=== PATIENT | female | born 2005 | race Caucasian/White ===

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

== ENCOUNTER 2023-11-16 18:13 | Emergency (ER) | payer MEDICAID, SELFPAY ==
[2022-04-07 16:27] VITALS: BP 104/49; BMI 22.7
[2023-11-16 18:28] VITALS: BP 98/63; PULSE 99; RESP 17; TEMP 36.6; O2SAT 98; BMI 19.0
--- NOTE | 2023-11-16 18:40 | ED_ITS ---
HPI - URI/Sore Throat General: Chief Complaint: Upper Respiratory Infection Stated Complaint: Sore throat Time Seen by Provider: 11/16/23 18:17 History of Present Illness: 17-year-old female comes in today with s ore throat and a barking cough. Patient reports that her son was sick with the croup. 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 Patient appears nontoxic. No acute distress is noted. Review of Systems General: Reports: 10 or more systems reviewed and unremarkable except in HPI and below ENMT: Reports: throat pain Resp: Reports: non-productive cough PFSH ED PFSH: Medical History (Updated 11/16/23 @ 19:08 by LEAH Prince) Major depressive disorder, single episode, mild Psychiatric care No pertinent family history Surgical History No pertinent past surgical history Family History (Updated 03/31/22 @ 07:28 by Komal Levin RN) Other Cancer Social History (Updated 03/31/22 @ 15:19 by Komal Levin RN) Smoking and tobacco/nicotine status: former use of tobacco/nicotine Second hand smoke exposure: Yes Alcohol intake: never Substance/Drug Use: never Adopted: No (foster care) Caregiver/support person: No Lives independently: Yes Household members: significant other and family Housing: House Marital status: Single Number of children: 1 Highest education level completed: 10th Grade service: No Current occupational status: unemployed Current occupational exposures/hazards: No Pets and animals: Yes Pets & animals: dog(s) Leisure activites: art, music, games and other Leisure activities details: 4 askew Sexually active: Yes Do you think of yourself as: Straight/Heterosexual Current gender identity: Female Yue/Islam: None Special yue needs: No Agree to transfusion: Yes Female Reproductive History: Para: 1 Physical Exam Const: COMMON NORMALS: alert HENMT: COMMON NORMALS: normocephalic HEAD & SCALP: normocephalic THROAT: posterior oropharynx abnormal erythema Neck/C-Spine: COMMON NORMALS: full ROM and no meningeal signs Resp: COMMON NORMALS: normal respiratory effort and clear to auscultation bilaterally AUSCULTATION: clear to auscultation bilaterally Cardio: COMMON NORMALS: regular rate RATE: regular rate GI: COMMON NORMALS: non-tender Back/Pelvis: COMMON NORMALS: thoracic and lumbar spine normal to inspection Extremity: COMMON NORMALS: full ROM Neuro: SENSORIUM/ORIENTATION: Yes alert MENINGEAL SIGNS: Yes no meningeal signs Skin: COMMON NORMALS: turgor normal GENERAL SKIN EXAM: turgor normal Course Vital Signs: Vital signs: Vital Signs Temperature 97.8 F 11/16/23 18:28 Pulse Rate 99 11/16/23 18:28 Respiratory Rate 17 11/16/23 18:28 Blood Pressure 98/63 11/16/23 18:28 Pulse Oximetry 98 11/16/23 18:28 Oxygen Delivery Me thod Room Air 11/16/23 18:28 MDM - URI/Sore Throat Medical Decision Making 17-year-old female comes in today for complaints of sore throat and cough. On exam posterior pharynx erythematous. Lungs are clear to auscultation. Skin is warm and dry. Vital signs are normal. Differential diagnosis includes not limited to strep pharyngitis, upper respiratory infection, bronchitis, pneumonia. No signs of severe illness is noted. Strep test was negative. Patient was given a dose of dexamethasone for sore throat and her barking cough. Patient reports understanding of care plan need for follow-up or return to the ER. Lab Data Laboratory Results Group A Strep Rapid Negative (Negative) 11/16/23 18:45 No radiology studies performed this visit Discharge Plan Discharge Patient Disposition: Home Clinical Impression: Upper respiratory infection Qualifiers: URI type: acute pharyngitis Pharyngitis/tonsillitis etiology: unspecified etiology Qualified Code(s): J02.9 - Acute pharyngitis, unspecified Condition: Stable Prescriptions: No Action vit-ferrous sulfat-FA 27 mg iron- 0.8 mg Tablet 1 tab PO DAILY ibuprofen 800 mg Tablet 800 mg PO TID Qty: 45 0RF Discharge Orders: Discharge ED (Routine); Ordered 11/16/23 Ordered By: Michael Medellin Referrals: Ronald Ramesh MD [Primary Care Provider] - Discharge Diet: Usual diet Discharge Activity: Increase activity as tolerated Patient Instructions: Upper Respiratory Infection (ED) Activity Restrictions/Additional Instructions: Drink plenty water and fluids. Use acetaminophen and ibuprofen for pain. Activity as tolerated. Follow-up with primary care for further instructions. Return to ED for new concerns. Stand Alone Forms: Work/School Release Coding Level of Care Code ED Fire Extinguisher Mechanic for Donny Islas
[2023-11-16 18:59] LABS: Rapid Strep A Test Negative (Negative)
[2023-11-16] MEDS: dexamethasone 10 mg/mL INJ IM (19:07)
== END 2023-11-16 19:18 | disposition home or self-care (01) ==
PROVIDERS: Emergency Provider Nurse Practitioner Family; PCP Family Medicine
DX: J02.9 Acute pharyngitis, unspecified (principal); Z87.891 Personal history of nicotine dependence
CPT/HCPCS: 87081; 87880; 99284; J1100

== ENCOUNTER 2023-11-22 16:08 | Emergency (ER) | payer BC, MEDICAID, SELFPAY ==
[2022-04-07 16:27] VITALS: BP 104/49; BMI 22.7
[2023-11-22 16:18] VITALS: BP 113/75; PULSE 107; RESP 18; TEMP 36.6; O2SAT 99
--- NOTE | 2023-11-22 16:27 | XRR_ITS ---
PROCEDURE INFORMATION: Exam: XR Chest Exam date and time: 11/22/2023 5:13 PM Age: 17 years old Clinical indication: Dyspnea and shortness of breath TECHNIQUE: Imaging protocol: Radiologic exam of the chest. Views: 1 view. COMPARISON: CR XR scoliosis survey 4-5V [id number] 04/02/2018 12:35 PM FINDINGS: Lungs: No focal consolidation. Pleural spaces: No pleural effusion. No pneumothorax. Heart/Mediastinum: No cardiomegaly. Bones/joints: No acute findings. XR/XR chest 1V portable [id number] IMPRESSION: No acute findings.
[2023-11-22 19:22] LABS: Adenovirus Not Detected (NOT DETECT); Chlamydia Pneumoniae Not Detected (NOT DETECT); Coronavirus 229E,HKU1,NL63,OC4 Not Detected (NOT DETECT); Human Metapneumovirus Not Detected (NOT DETECT); Human Rhinovirus/Enterovirus Not Detected (NOT DETECT); Influenza A Not Detected (NOT DETECT); Influenza A H1 Not Detected (NOT DETECT); Influenza A H1-2009 Not Detected (NOT DETECT); Influenza A H3 Not Detected (NOT DETECT); Influenza B Not Detected (NOT DETECT); Mycoplasma Pneumoniae Not Detected (NOT DETECT); Parainfluenza Virus Type 1 Not Detected (NOT DETECT); Parainfluenza Virus Type 2 Not Detected (NOT DETECT); Parainfluenza Virus Type 3 Not Detected (NOT DETECT); Parainfluenza Virus Type 4 Not Detected (NOT DETECT); Respiratory Syncytial Virus A Not Detected (NOT DETECT); Respiratory Syncytial Virus B Not Detected (NOT DETECT); SARS-COV-2 Not Detected (NOT DETECT)
--- NOTE | 2023-11-22 19:23 | W.ED.URI ---
Documented by User: SUGAR Martin 11/22/23 19:31 HPI - URI/Sore Throat General: Chief Complaint: Upper Respiratory Infection Stated Complaint: trouble breathing, abd pain, fever Time Seen by Provider: 11/22/23 18:54 Source: patient Mode of arrival: ambulatory Limitations: no limitations History of Present Illness: Patient is a 17-year-old female who presents to the emergency department complaining of productive cough for the past week. She notes she was seen here a week ago and given a liquid steroid, no antibiotics at that time. She states that she has retained a cough and has become more productive, stating she coughs much this morning that she coughed up blood. She is also noting some other general upper respiratory symptoms. Subjective fever reported. MD elicited complaint: cough Onset (ago): week(s) Consistency: progressively worsening Severity: moderate Description of mucous: yellow and green Able to tolerate fluids by mouth: Yes Relieving factors: nothing Associated symptoms: Reports fever(s) and nasal congestion; Deny abdominal pain, chills, chest pain, diarrhea, ear or mastoid pain, headache(s), nausea or vomiting Review of Systems General: Reports: 10 or more systems reviewed and unremarkable except in HPI and below Const: Reports: fever(s); Denies: chills or fatigue Eyes: Denies: change in vision ENMT: Reports: nasal discharge and nasal congestion; Denies: throat pain or ear or mastoid pain Card: Denies: chest pain, palpitations, swelling of feet/ankles or lightheadedness Resp: Reports: productive cough, wheezing and chest congestion; Denies: dyspnea GI: Denies: abdominal pain, nausea, vomiting, diarrhea or constipation : Denies: flank pain, difficulty voiding, dysuria or urinary frequency Musc: Denies: neck pain, back pain or joint pain Skin/Breast: Denies: rash Neuro: Denies: headache(s), numbness in extremities or weakness in extremities PFSH ED PFSH: Medical History Major depressive disorder, single episode, mild Psychiatric care No pertinent family history Surgical History No pertinent past surgical history Family History Other Cancer Social History Smoking and tobacco/nicotine status: former use of tobacco/nicotine Second hand smoke exposure: Yes Alcohol intake: never Substance/Drug Use: never Adopted: No (foster care) Caregiver/support person: No Lives independently: Yes Household members: significant other and family Housing: House Marital status: Single Number of children: 1 Highest education level completed: 10th Grade service: No Current occupational status: unemployed Current occupational exposures/hazards: No Pets and animals: Yes Pets & animals: dog(s) Leisure activites: art, music, games and other Leisure activities details: 4 askew Sexually active: Yes Do you think of yourself as: Straight/Heterosexual Current gender identity: Female Yue/Yazdanism: None Special yue needs: No Agree to transfusion: Yes Female Reproductive History: Date of last menstrual period: 11/01/23 Para: 1 Physical Exam Const: COMMON NORMALS: no acute distress, patient oriented x3 and no limitations GENERAL APPEARANCE: cooperative, comfortable and well developed ORIENTATION/CONSCIOUSNESS: Yes awake, Yes oriented to person, Yes oriented to place and Yes oriented to time HENMT: COMMON NORMALS: normocephalic, atraumatic and hearing grossly normal bilaterally HEAD & SCALP: normocephalic and atraumatic Eye: COMMON NORMALS: Equal, round and reactive pupils present, EOMs intact bilaterally and conjunctivae normal CONJUNCTIVA: Yes conjunctivae normal PUPIL: Yes Equal, round and reactive pupils present Neck/C-Spine: COMMON NORMALS: full ROM, supple and no JVD Resp: COMMON NORMALS: normal respiratory effort, No retractions, No use of accessory muscles and clear to auscultation bilaterally AUSCULTATION: clear to auscultation bilaterally Cardio: COMMON NORMALS: no JVD, regular rate, regular rhythm, No clicks present (Cardio), No murmurs present (Cardio) and No rub (Cardio) RATE: regular rate RHYTHM: regular rhythm GI: COMMON NORMALS: Normal to inspection, nondistended, normoactive bowel sounds present, Soft to palpation and non-tender AUSCULTATION: Yes normoactive bowel sounds PALPATION: Yes Soft to palpation RECTAL EXAM: deferred : COMMON NORMALS: Yes no CVA tenderness BLADDER/KIDNEY EXAM: Yes no CVA tenderness Back/Pelvis: COMMON NORMALS: no CVA tenderness, thoracic and lumbar spine normal to inspection, no thoracic nor lumbar tenderness and thoraco-lumbar ROM normal Extremity: COMMON NORMALS: normal to inspection, full ROM and capillary refill normal Neuro: COMMON NORMALS: patient oriented x3, CN's II-XII intact bilaterally, moves all extremities, no focal motor deficits and no sensory deficits noted SENSORIUM/ORIENTATION: Yes oriented to person, Yes oriented to place and Yes oriented to time Psych: COMMON NORMALS: mental status grossly normal and Normal thought process present THOUGHT PROCESS: Normal thought process present Skin: COMMON NORMALS: no rashes or lesions noted GENERAL SKIN EXAM: no rashes or lesions noted Course Vital Signs: Vital signs: Vital Signs Temperature 98 F 11/22/23 16:18 Pulse Rate 90 11/22/23 19:26 Respiratory Rate 16 11/22/23 19:26 Blood Pressure 115/73 11/22/23 19:26 Pulse Oximetry 100 11/22/23 19:26 Oxygen Delivery Me thod Room Air 11/22/23 16:18 MDM - URI/Sore Throat Medical Decision Making Patient presents with 1 week of progressively worsening cough that is now productive of yellow-green sputum. 1 episode of coughing up blood due to the harshness of the cough this morning. States she was given a steroid when she was seen last week, initially helped but she is steadily worsened. Initially she did not have a productive cough. Her vitals unremarkable and condition has remained stable. Exam unremarkable. Lung sounds normal. Respiratory panel all negative. Chest x-ray did not demonstrate any acute findings. Clinically we will treat for an acute bronchitis and reactive airway disease as she is noting some wheezing. No history of asthma. Will treat with azithromycin and steroids. Return precautions given. Patient agrees with plan. Lab Data I reviewed the patient's lab results. Radiology Impressions Chest X-Ray 11/22/23 16:27 IMPRESSION: No acute findings. Laboratory Results Adenovirus (PCR) Not detected (NOT DETECT) 11/22/23 17:20 C. pneumoniae DNA (PCR) Not detected (NOT DETECT) 11/22/23 17:20 Coronavirus 229E (PCR) Not detected (NOT DETECT) 11/22/23 17:20 Human Metapneumovir PCR Not detected (NOT DETECT) 11/22/23 17:20 Influenza A (H1) PCR Not detected (NOT DETECT) 11/22/23 17:20 Influ A (H1/09) PCR Not detected (NOT DETECT) 11/22/23 17:20 Influenza A (H3) PCR Not detected (NOT DETECT) 11/22/23 17:20 Influenza Type A (PCR) Not detected (NOT DETECT) 11/22/23 17:20 Influenza Type B (PCR) Not detected (NOT DETECT) 11/22/23 17:20 M. pneumoniae (PCR) Not detected (NOT DETECT) 11/22/23 17:20 Parainfluenza 1 (PCR) Not detected (NOT DETECT) 11/22/23 17:20 Parainfluenza 2 (PCR) Not detected (NOT DETECT) 11/22/23 17:20 Parainfluenza 3 (PCR) Not detected (NOT DETECT) 11/22/23 17:20 Parainfluenza 4 (PCR) Not detected (NOT DETECT) 11/22/23 17:20 RSV Type A (PCR) Not detected (NOT DETECT) 11/22/23 17:20 RSV Type B (PCR) Not detected (NOT DETECT) 11/22/23 17:20 Entero/Rhino (PCR) Not detected (NOT DETECT) 11/22/23 17:20 SARS-CoV-2 (PCR) Not detected (NOT DETECT) 11/22/23 17:20 All radiology interpretation(s) finalized by discharge Discharge Plan Discharge Patient Disposition: Home Clinical Impression: Bronchitis Reactive airway disease Qualifiers: Asthma severity: mild Asthma persistence: intermittent Asthma complication type: with acute exacerbation Qualified Code(s): J45.21 - Mild intermittent asthma with (acute) exacerbation Condition: Stable Prescriptions: New prednisone 20 mg tablet 60 mg PO ONCE 5 Days Qty: 15 0RF albuterol sulfate 90 mcg/actuation HFA aerosol inhaler 1 inh inhalation Q6H PRN (Reason: shortness of breath or wheezing) Qty: 6.7 0RF azithromycin 500 mg tablet 500 mg PO DAILY 5 Days Qty: 5 0RF No Action vit-ferrous sulfat-FA 27 mg iron- 0.8 mg Tablet 1 tab PO DAILY ibuprofen 800 mg Tablet 800 mg PO TID Qty: 45 0RF Discharge Orders: Discharge ED (Routine); Ordered 11/22/23 Ordered By: Krish Mendoza Referrals: Ronald Ramesh MD [Primary Care Provider] - Discharge Diet: Usual diet Discharge Activity: Increase activity as tolerated Patient Instructions: Acute Bronchitis (ED) Activity Restrictions/Additional Instructions: Take azithromycin as prescribed. Prednisone as prescribed. Albuterol inhaler as needed. Return with any new or concerning symptoms you may have. Otherwise follow-up with primary care. Stand Alone Forms: Work/School Release Coding Level of Care Code ED Elementary Reading Specialist for Chg Fwd Documented by User: Gucci Medrano DO 11/23/23 07:36 HPI - URI/Sore Throat General: Chief Complaint: Upper Respiratory Infection Stated Complaint: trouble breathing, abd pain, fever Time Seen by Provider: 11/22/23 18:54 PFSH ED PFSH: Medical History Major depressive disorder, single episode, mild Psychiatric care No pertinent family history Surgical History No pertinent past surgical history Family History Other Cancer Social History Smoking and tobacco/nicotine status: former use of tobacco/nicotine Second hand smoke exposure: Yes Alcohol intake: never Substance/Drug Use: never Adopted: No (foster care) Caregiver/support person: No Lives independently: Yes Household members: significant other and family Housing: House Marital status: Single Number of children: 1 Highest education level completed: 10th Grade service: No Current occupational status: unemployed Current occupational exposures/hazards: No Pets and animals: Yes Pets & animals: dog(s) Leisure activites: art, music, games and other Leisure activities details: 4 askew Sexually active: Yes Do you think of yourself as: Straight/Heterosexual Current gender identity: Female Yue/Yazdanism: None Special yue needs: No Agree to transfusion: Yes Course Vital Signs: Vital signs: Vital Signs Temperature 98 F 11/22/23 16:18 Pulse Rate 90 11/22/23 19:26 Respiratory Rate 16 11/22/23 19:26 Blood Pressure 115/73 11/22/23 19:26 Pulse Oximetry 100 11/22/23 19:26 Oxygen Delivery Me thod Room Air 11/22/23 16:18 MDM - URI/Sore Throat Medical Decision Making Patient presents with 1 week of progressively worsening cough that is now productive of yellow-green sputum. 1 episode of coughing up blood due to the harshness of the cough this morning. States she was given a steroid when she was seen last week, initially helped but she is steadily worsened. Initially she did not have a productive cough. Her vitals unremarkable and condition has remained stable. Exam unremarkable. Lung sounds normal. Respiratory panel all negative. Chest x-ray did not demonstrate any acute findings. Clinically we will treat for an acute bronchitis and reactive airway disease as she is noting some wheezing. No history of asthma. Will treat with azithromycin and steroids. Return precautions given. Patient agrees with plan. Chart reviewed Lab Data Radiology Impressions Chest X-Ray 11/22/23 16:27 IMPRESSION: No acute findings. Laboratory Results Adenovirus (PCR) Not detected (NOT DETECT) 11/22/23 17:20 C. pneumoniae DNA (PCR) Not detected (NOT DETECT) 11/22/23 17:20 Coronavirus 229E (PCR) Not detected (NOT DETECT) 11/22/23 17:20 Human Metapneumovir PCR Not detected (NOT DETECT) 11/22/23 17:20 Influenza A (H1) PCR Not detected (NOT DETECT) 11/22/23 17:20 Influ A (H1/09) PCR Not detected (NOT DETECT) 11/22/23 17:20 Influenza A (H3) PCR Not detected (NOT DETECT) 11/22/23 17:20 Influenza Type A (PCR) Not detected (NOT DETECT) 11/22/23 17:20 Influenza Type B (PCR) Not detected (NOT DETECT) 11/22/23 17:20 M. pneumoniae (PCR) Not detected (NOT DETECT) 11/22/23 17:20 Parainfluenza 1 (PCR) Not detected (NOT DETECT) 11/22/23 17:20 Parainfluenza 2 (PCR) Not detected (NOT DETECT) 11/22/23 17:20 Parainfluenza 3 (PCR) Not detected (NOT DETECT) 11/22/23 17:20 Parainfluenza 4 (PCR) Not detected (NOT DETECT) 11/22/23 17:20 RSV Type A (PCR) Not detected (NOT DETECT) 11/22/23 17:20 RSV Type B (PCR) Not detected (NOT DETECT) 11/22/23 17:20 Entero/Rhino (PCR) Not detected (NOT DETECT) 11/22/23 17:20 SARS-CoV-2 (PCR) Not detected (NOT DETECT) 11/22/23 17:20 Discharge Plan Discharge Patient Disposition: Home Clinical Impression: Bronchitis Reactive airway disease Qualifiers: Asthma severity: mild Asthma persistence: intermittent Asthma complication type: with acute exacerbation Qualified Code(s): J45.21 - Mild intermittent asthma with (acute) exacerbation Condition: Stable Prescriptions: New prednisone 20 mg tablet 60 mg PO ONCE 5 Days Qty: 15 0RF albuterol sulfate 90 mcg/actuation HFA aerosol inhaler 1 inh inhalation Q6H PRN (Reason: shortness of breath or wheezing) Qty: 6.7 0RF azithromycin 500 mg tablet 500 mg PO DAILY 5 Days Qty: 5 0RF No Action vit-ferrous sulfat-FA 27 mg iron- 0.8 mg Tablet 1 tab PO DAILY ibuprofen 800 mg Tablet 800 mg PO TID Qty: 45 0RF Discharge Orders: Discharge ED (Routine); Ordered 11/22/23 Ordered By: Krish Mendoza Referrals: Ronald Ramesh MD [Primary Care Provider] - Discharge Diet: Usual diet Discharge Activity: Increase activity as tolerated Patient Instructions: Acute Bronchitis (ED) Activity Restrictions/Additional Instructions: Take azithromycin as prescribed. Prednisone as prescribed. Albuterol inhaler as needed. Return with any new or concerning symptoms you may have. Otherwise follow-up with primary care. Stand Alone Forms: Work/School Release Coding Level of Care Code ED Elementary Reading Specialist for Donny Islas
[2023-11-22 19:26] VITALS: BP 115/73; PULSE 90; RESP 16; O2SAT 100
== END 2023-11-22 19:28 | disposition home or self-care (01) ==
PROVIDERS: Emergency Medicine; Emergency Provider Physician Assistant; PCP Family Medicine
DX: J40 Bronchitis, not specified as acute or chronic (principal); J45.21 Mild intermittent asthma with (acute) exacerbation; Z87.891 Personal history of nicotine dependence
CPT/HCPCS: 71045; 87486; 87581; 87633; 99284

== ENCOUNTER 2024-04-18 23:32 | Emergency (ER) | payer MEDICAID, SELFPAY ==
[2022-04-07 16:27] VITALS: BP 104/49; BMI 22.7
[2024-04-18 23:38] VITALS: BP 107/72; PULSE 79; RESP 16; TEMP 36.8; O2SAT 100; BMI 18.6
[2024-04-18 23:42] VITALS: BP 108/63; PULSE 73; RESP 15; O2SAT 100
--- NOTE | 2024-04-18 23:52 | W.ED.PREGNAN ---
HPI - General: Chief complaint: Vaginal Bleeding Stated complaint: believe possible misscarage Time Seen by Provider: 04/18/24 23:44 Source: patient Mode of arrival: ambulatory Limitations: no limitations History of Present Illness: Patient is a 18 y/o female who presents to the emergency department with vaginal bleeding onset 30 minutes prior to arrival. States she also had 1 episode of vaginal bleeding while she was sitting on the toilet, states it was bright red and did appear pink as well. No clots. She has a history of elective miscarriage in the past, also has 1 live . States she has never had this issue before. Feels like she is going to pass out and does feel dizzy. States that she is having abdominal pain that radiates into the back, states that the pain is there at this time. Has not taken anything for the pain. Has established with OB, has seen them once and no complications reported. Vitals stable at this time, 100% SpO2 on room air and normal pulse. MD Complaint: vaginal bleeding Onset (ago): minute(s) (30) Associated symptoms: Reports abdominal pain; Deny dysuria, headache(s), nausea or vomiting Related Data Home Medications Medication Instructions Recorded Confirmed vitamin-ferrous sulfate 1 tab PO DAILY 09/13/20 02/15/23 27 mg iron-folic acid 0.8 mg tablet Previous Rx's Medication Instructions Recorded ibuprofen 800 mg tablet 800 mg PO TID #45 tabs 05/24/22 albuterol sulfate 90 mcg/actuation 1 inh inhalation Q6H PRN shortness 11/22/23 aerosol inhaler of breath or wheezing #6.7 grams Allergies Allergy/AdvReac Type Severity Reaction Status Date / Time acetaminophen [From Tylenol] Allergy Unknown Unknown Verified 05/19/22 19:55 Review of Systems General: Reports: 10 or more systems reviewed and unremarkable except in HPI and below Const: Denies: fever(s), chills, change in appetite, change in weight or diaphoresis ENMT: Denies: throat pain or hoarseness Card: Reports: lightheadedness; Denies: chest pain or palpitations Resp: Denies: dyspnea, productive cough or wheezing GI: Reports: abdominal pain; Denies: nausea, vomiting, diarrhea, constipation, bloating, change in stool character or hematochezia : Reports: vaginal bleeding; Denies: flank pain, difficulty voiding, dysuria, urinary frequency or urinary urgency Musc: Reports: back pain; Denies: neck pain Skin/Breast: Denies: rash or new lesions Neuro: Reports: dizziness; Denies: headache(s) PFSH ED PFSH: Medical History Major depressive disorder, single episode, mild No pertinent family history Surgical History No pertinent past surgical history Family History Other Cancer Social History Smoking and tobacco/nicotine status: former use of tobacco/nicotine Second hand smoke exposure: Yes Alcohol intake: never Substance/Drug Use: never Adopted: No (foster care) Caregiver/support person: No Lives independently: Yes Household members: significant other and family Housing: House Marital status: Single Number of children: 1 Highest education level completed: 10th Grade service: No Current occupational status: unemployed Current occupational exposures/hazards: No Pets and animals: Yes Pets & animals: dog(s) Leisure activites: art, music, games and other Leisure activities details: 4 askew Sexually active: Yes Do you think of yourself as: Straight/Heterosexual Current gender identity: Female Yue/Restorationist: None Special yue needs: No Agree to transfusion: Yes Female Reproductive History: Para: 1 Physical Exam Const: COMMON NORMALS: no acute distress, average body habitus, patient oriented x3, no limitations, healthy appearing, alert and well nourished GENERAL APPEARANCE: cooperative and comfortable ORIENTATION/CONSCIOUSNESS: Yes awake HENMT: COMMON NORMALS: normocephalic, atraumatic, hearing grossly normal bilaterally, external ears normal, Normal external nose present, Normal nasal mucous membranes and turbinates present and moist oral mucous membranes HEAD & SCALP: normocephalic and atraumatic NOSE: Normal external nose present and Normal nasal mucous membranes and turbinates present EXTERNAL EAR: Yes external ears normal Eye: COMMON NORMALS: Equal, round and reactive pupils present, EOMs intact bilaterally, conjunctivae normal and normal visual sanchez by confrontation CONJUNCTIVA: Yes conjunctivae normal PUPIL: Yes Equal, round and reactive pupils present Neck/C-Spine: COMMON NORMALS: full ROM, supple, no meningeal signs and no JVD Resp: COMMON NORMALS: normal respiratory effort, No retractions, No use of accessory muscles and clear to auscultation bilaterally AUSCULTATION: clear to auscultation bilaterally, no crackles, no rales, no rhonchi and no wheezes Cardio: COMMON NORMALS: no JVD, regular rate, regular rhythm, S1 normal heart sound present, S2 normal heart sound present, No gallops present (Cardio), No clicks present (Cardio), No murmurs present (Cardio), No rub (Cardio) and Peripheral pulses 2+ throughout RATE: regular rate RHYTHM: regular rhythm HEART SOUNDS: S1 normal heart sound present and S2 normal heart sound present PERIPHERAL PULSES: Peripheral pulses 2+ throughout GI: COMMON NORMALS: Normal to inspection, nondistended, normoactive bowel sounds present, Soft to palpation, No hepatosplenomegaly present and no masses AUSCULTATION: Yes normoactive bowel sounds PALPATION: Yes Soft to palpation, No Guarding due to palpation present (GI), No Rigid due to palpation and Yes No hepatosplenomegaly present RECTAL EXAM: deferred OTHER: Mild reproducible TTP of bilateral lower quadrants Extremity: COMMON NORMALS: normal to inspection and full ROM Neuro: COMMON NORMALS: patient oriented x3, moves all extremities, no focal motor deficits and no sensory deficits noted SENSORIUM/ORIENTATION: Yes alert MENINGEAL SIGNS: Yes no meningeal signs Psych: COMMON NORMALS: mental status grossly normal, cooperative and speech normal SPEECH: Yes normal speech Skin: COMMON NORMALS: no rashes or lesions noted GENERAL SKIN EXAM: no rashes or lesions noted Course Vital Signs: Vital signs: Vital Signs Temperature 98.2 F 04/18/24 23:38 Pulse Rate 73 04/18/24 23:42 Respiratory Rate 15 04/18/24 23:42 Blood Pressure 108/63 04/18/24 23:42 Pulse Oximetry 100 04/18/24 23:42 Oxygen Delivery Me thod Room Air 04/18/24 23:42 MDM - OB/Uterine Contractions Medical Decision Making Patient reports 7 to 8 weeks , states she had 1 episode of bright red vaginal bleeding prior to arrival associated with back pain, abdominal pain, and dizziness. Noted is a history of iron deficiency anemia. Has had normal workup to this point, does have a history of elective . Her CBC did show increase in hemoglobin, though still low, rest was unremarkable. Her serum quantitative hCG did correlate with her gestational age. Additionally ultrasound obtained showed subchorionic hemorrhage, however status was normal appearing. Likely her bleeding and pain secondary to the subchorionic hemorrhage, she is encouraged to follow-up with her OB either tomorrow for reevaluation purposes. Strict return precautions are given, she is requesting to leave and be called with official radiology results of her ultrasound. Care of patient discussed with Dr. Benedict. Lab Data 04/18/24 23:57 Laboratory Results WBC 9.20 10^3/uL (4.5-13.0) 04/18/24 23:57 RBC 3.86 10^6/uL (3.85-5.65) 04/18/24 23:57 Hgb 10.50 g/dL (12.4-14.8) L 04/18/24 23:57 Hct 32.1 % (36-47) L 04/18/24 23:57 MCV 83.2 fl (85-98) L 04/18/24 23:57 MCH 27.2 pg (27-33) 04/18/24 23:57 MCHC 32.7 g/dL (30-55) 04/18/24 23:57 RDW 13.5 % (12.1-15.1) 04/18/24 23:57 Plt Count 298 10^3/cmm (157-399) 04/18/24 23:57 MPV 10.4 fL (7.4-10.4) 04/18/24 23:57 Neut % (Auto) 60.5 % 04/18/24 23:57 Lymph % (Auto) 30.8 % 04/18/24 23:57 [place] % (Auto) 7.3 % 04/18/24 23:57 Eos % (Auto) 0.9 % 04/18/24 23:57 Baso % (Auto) 0.4 % 04/18/24 23:57 Neut # (Auto) 5.57 10^3/uL (1.8-8.0) 04/18/24 23:57 Lymph # (Auto) 2.8 10^3/uL (1.5-6.5) 04/18/24 23:57 [place] # (Auto) 0.7 10^3/uL (0.2-0.9) 04/18/24 23:57 Eos # (Auto) 0.1 10^3/uL (0.0-0.8) 04/18/24 23:57 Baso # (Auto) 0.0 10^3/uL (0.0-0.1) 04/18/24 23:57 Nucleated RBC % (auto) 0 % 04/18/24 23:57 Nucleated RBCs # 0.0 /100WBC 04/18/24 23:57 Ser , Semi-Qnt 41332.00 mIU/mL 04/18/24 23:57 XR interpretation done by ED provider, pending radiology final review ED provider radiology interpretation(s): Subchorionic hemorrhage as noted by fleet technician and reviewed by me, patient is wanting to leave and be called with official radiology results. Discharge Plan Discharge Patient Disposition: Home Clinical Impression: Subchorionic hemorrhage Condition: Stable Prescriptions: No Action vit-ferrous sulfat-FA 27 mg iron- 0.8 mg Tablet 1 tab PO DAILY ibuprofen 800 mg Tablet 800 mg PO TID Qty: 45 0RF albuterol sulfate 90 mcg/actuation HFA aerosol inhaler 1 inh inhalation Q6H PRN (Reason: shortness of breath or wheezing) Qty: 6.7 0RF Discharge Orders: Discharge ED (Routine); Ordered 04/19/24 Ordered By: Krish Mendoza Referrals: Ronald Ramesh MD [Primary Care Provider] - Discharge Diet: Usual diet Discharge Activity: Increase activity as tolerated Patient Instructions: Subchorionic Hemorrhage (ED) Activity Restrictions/Additional Instructions: Follow-up with Dr. Ramesh as discussed, call his office later this morning. You may take Tylenol for your stomach or back pain. Drink plenty of fluids. Please return if you have any increase in bleeding, severe increase in pain, or other concerning symptoms. Coding Level of Care Code ED Identification Clerk for Donny Islas
[2024-04-19 00:07] LABS: Basophils % 0.4 %; Eosinophils # 0.1 10^3/uL (0.0-0.8); Eosinophils % 0.9 %; Hematocrit 32.1 % (36-47); Lymphocytes # 2.8 10^3/uL (1.5-6.5); Lymphocytes % 30.8 %; Mean Corpuscular HGB Conc 32.7 g/dL (30-55); Mean Corpuscular Hemoglobin 27.2 pg (27-33); Mean Corpuscular Volume 83.2 fl (85-98); Mean Platelet Volume 10.4 fL (7.4-10.4); Monocytes # 0.7 10^3/uL (0.2-0.9); Monocytes % 7.3 %; Neutrophils # 5.57 10^3/uL (1.8-8.0); Neutrophils % 60.5 %; Nucleated Red Blood Cells % 0 %; Platelet Count 298 10^3/cmm (157-399); Red Blood Count 3.86 10^6/uL (3.85-5.65); Red Cell Distribution Width 13.5 % (12.1-15.1)
[2024-04-19 01:06] VITALS: BP 103/62; PULSE 72; RESP 17; O2SAT 97
[2024-04-19 01:15] VITALS: BP 103/62; PULSE 74; O2SAT 99
--- NOTE | 2024-04-19 23:50 | USR_ITS ---
PROCEDURE INFORMATION: Exam: US First Trimester, Transabdominal Exam date and time: 04/19/2024 12:29 AM Age: 18 years old Clinical indication: Lmp or gestational age (in weeks): 9w 3 d by lmp; Antepartum complications; ; Patient HX: G4-p2-a1-l2 with vaginal bleeding x 1 hour. ; Additional info: Vaginal bleeding, back/abd pain LABS AND CLINICAL REPORTS: Choriogonadotropin in serum (Serum HCG): 44284 mIU/mL Last menstrual period start date: 02/12/2024 Gestational age (Established): 9 w 3 d Estimated due date (Established): 11/18/2024 TECHNIQUE: Imaging protocol: Real-time transabdominal obstetrical ultrasound of the maternal pelvis and a first trimester , less than 14 weeks 0 days, with image documentation. COMPARISON: US OB >= 14 weeks fetus [id number] 01/04/2022 8:33 AM FINDINGS: GESTATION: Gestation: Intrauterine gestation is visualized. pole is visualized. Yolk sac is visualized. Embryonic/ heart rate: 167 bpm Extra-embryonic membranes/Placenta: Subchorionic hematoma measures 4.7 cm x 0.7 cm x 4.2 cm (7.2 mL). Amniotic/Chorionic fluid: Amniotic and extra-amniotic fluid are normal for gestational age. BIOMETRY: Gestational age (AUA): 9 w 5 d Estimated due date (AUA): 11/17/2024 [place] rump length (CRL): 29 mm. EGA (CRL) is 9 w 5 d MATERNAL: Uterus: Uterus measures 10.23 cm x 8.1 cm x 6.7 cm. Cervix: Unremarkable. Endocervical canal is closed. Right ovary/adnexa: Right ovary measures 2.7 cm x 2.1 cm x 2.8 cm. Right ovarian volume is 8.3 mL. Normal blood flow. Left ovary/adnexa: Left ovary measures 2.9 cm x 3.1 cm x 2.2 cm. Left ovarian volume is 10.6 mL. Normal blood flow. Intraperitoneal space: No intraperitoneal free fluid. US/US OB <= 14 weeks fetus [id number] IMPRESSION: 1. Single living intrauterine measuring 9 weeks and 5 days. 2. Subchorionic hemorrhage x 7.2 mL.
== END 2024-04-19 01:18 | disposition home or self-care (01) ==
PROVIDERS: Emergency Provider Physician Assistant; PCP Family Medicine
DX: O20.8 Other hemorrhage in early pregnancy (principal); Z3A.09 9 weeks gestation of pregnancy; Z87.891 Personal history of nicotine dependence
CPT/HCPCS: 76801; 84702; 85025; 86900; 99284

== ENCOUNTER 2024-07-22 16:25 | Emergency (ER) | payer SELFPAY ==
[2022-04-07 16:27] VITALS: BP 104/49; BMI 22.7
[2024-07-22] VITALS (7 sets, daily range): BP systolic 90–211; BP diastolic 54–106; PULSE 88–127; RESP 16–20; TEMP 37.1; O2SAT 97–100; BMI 18.6
--- NOTE | 2024-07-22 17:30 | ED_ITS ---
HPI - COVID General: Chief Complaint: COVID symptoms Stated Complaint: fever Time Seen by Provider: 07/22/24 16:49 Source: patient Mode of arrival: ambulatory Limitations: no limitations History of Present Illness: Patient is a 18-year-old female who is currently 23 weeks who presents to the emergency department complaining of multiple symptoms beginning this morning. Reports possible COVID exposure from family member who takes care of sick patients in custodial. Patient is reporting bilateral ear pain, headache, nonproductive cough, and general body aches. She states that her OB i s Dr. Ramesh, her has been without complications. She is not having any abdominal pain or vaginal bleeding. She states that she has felt nauseous and did throw up 1 time. States that she cannot take Tylenol due to an allergy. There is tachycardia noted on arrival, though she is not complaining of any shortness of breath, syncope, palpitations, or chest pain. She is not hypotensive, no other complaints at this time. MD complaint: reported COVID exposure and has COVID symptoms Prior covid testing: no COVID 19 common symptoms: positive non-productive cough, body aches, headache(s), nausea and vomiting; negative fever(s), chills, productive cough, dyspnea, fatigue, throat pain or diarrhea COVID 19 other sytmptoms: negative chest pain Onset (ago): hour(s) Severity: moderate COVID Results: SARS-CoV-2 (PCR) Not detected (NOT DETECT) 11/22/23 17:20 Coronavirus Type 229E (PCR) Not detected (NOT DETECT) 11/22/23 17:20 Coronavirus (PCR) Negative (Negative) 07/22/24 16:38 Related Data Home Medications Medication Instructions Recorded Confirmed vitamin-ferrous sulfate 1 tab PO DAILY 09/13/20 02/15/23 27 mg iron-folic acid 0.8 mg tablet Previous Rx's Medication Instructions Recorded ibuprofen 800 mg tablet 800 mg PO TID #45 tabs 05/24/22 albuterol sulfate 90 mcg/actuation 1 inh inhalation Q6H PRN shortness 11/22/23 aerosol inhaler of breath or wheezing #6.7 grams Allergies Allergy/AdvReac Type Severity Reaction Status Date / Time acetaminophen [From Tylenol] Allergy Unknown Unknown Verified 07/22/24 16:46 Review of Systems General: Reports: 10 or more systems reviewed and unremarkable except in HPI and below and Other () Const: Reports: body aches and malaise; Denies: fever(s), chills or fatigue Eyes: Denies: change in vision ENMT: Reports: ear or mastoid pain; Denies: throat pain or nasal discharge Card: Denies: chest pain, palpitations, swelling of feet/ankles or lightheadedness Resp: Reports: non-productive cough; Denies: dyspnea, productive cough or wheezing GI: Reports: nausea and vomiting; Denies: abdominal pain, diarrhea, constipation or GI cramping : Denies: flank pain, difficulty voiding, dysuria, urinary frequency or vaginal bleeding Musc: Denies: neck pain, back pain or joint pain Skin/Breast: Denies: rash Neuro: Reports: headache(s); Denies: numbness in extremities or weakness in extremities PFSH ED PFSH: Medical History Major depressive disorder, single episode, mild No pertinent family history Surgical History No pertinent past surgical history Family History Other Cancer Social History Smoking and tobacco/nicotine status: former use of tobacco/nicotine Second hand smoke exposure: Yes Alcohol intake: never Substance/Drug Use: never Adopted: No (foster care) Caregiver/support person: No Lives independently: Yes Household members: significant other and family Housing: House Marital status: Single Number of children: 1 Highest education level completed: 10th Grade service: No Current occupational status: unemployed Current occupational exposures/hazards: No Pets and animals: Yes Pets & animals: dog(s) Leisure activites: art, music, games and other Leisure activities details: 4 askew Sexually active: Yes Do you think of yourself as: Straight/Heterosexual Current gender identity: Female Yue/Hoahaoism: None Special yue needs: No Agree to transfusion: Yes Female Reproductive History: Para: 1 Physical Exam Const: COMMON NORMALS: no acute distress and no limitations GENERAL APPEARANCE: cooperative, comfortable and well developed ORIENTATION/CONSCIOUSNESS: Yes awake HENMT: COMMON NORMALS: normocephalic, atraumatic, hearing grossly normal bilaterally, external ears normal, EAC's normal and TM's normal bilaterally HEAD & SCALP: normocephalic and atraumatic EXTERNAL EAR: Yes external ears normal EXTERNAL AUDITORY CANAL: EAC's normal TYMPANIC MEMBRANE: TM's normal bilaterally MOUTH: Normal oral and palatal mucosa present THROAT: posterior oropharynx normal and tonsils normal Eye: COMMON NORMALS: Equal, round and reactive pupils present, EOMs intact bilaterally and conjunctivae normal CONJUNCTIVA: Yes conjunctivae normal PUPIL: Yes Equal, round and reactive pupils present Neck/C-Spine: COMMON NORMALS: full ROM, supple and no JVD Resp: COMMON NORMALS: normal respiratory effort, No retractions, No use of accessory muscles and clear to auscultation bilaterally AUSCULTATION: clear to auscultation bilaterally Cardio: COMMON NORMALS: no JVD, regular rhythm, No clicks present (Cardio), No murmurs present (Cardio) and No rub (Cardio) RATE: tachycardic RHYTHM: regular rhythm GI: COMMON NORMALS: Normal to inspection, nondistended, normoactive bowel sounds present, Soft to palpation and non-tender INSPECTION: Yes gravid abdomen AUSCULTATION: Yes normoactive bowel sounds PALPATION: Yes Soft to palpation RECTAL EXAM: deferred Extremity: COMMON NORMALS: normal to inspection, full ROM and capillary refill normal Skin: COMMON NORMALS: no rashes or lesions noted GENERAL SKIN EXAM: no rashes or lesions noted Course Vital Signs: Vital signs: Vital Signs Temperature 98.8 F 07/22/24 16:44 Pulse Rate 127 H 07/22/24 17:37 Respiratory Rate 20 H 07/22/24 17:37 Blood Pressure 99/54 07/22/24 17:16 Pulse Oximetry 98 07/22/24 17:37 Oxygen Delivery Me thod Room Air 07/22/24 17:37 MDM - COVID Medical Decision Making Patient presented with multiple symptoms/complaints. She was tachycardic on examination, otherwise unremarkable. Reported positive COVID exposure by proximity. Swab for COVID and flu was negative. Discussed with her obtaining baseline labs as well as some IV fluids see if this help with her heart rate. She states that she would rather go home and follow-up with her OB, as she thinks that this is just viral as well as one of her children recently was sick. Gave proper return precautions, patient states that she will come back if she is not feeling better to obtain labs. She had no reports of vaginal bleeding cramping to make me think of any compromise to her , and normal to this point. Tachycardia likely secondary to dehydration as she states she barely drinks any water, but has been increasing this today. Also co uld be secondary to , she had no reports of palpitations, syncope, chest pain, or breathing difficulties. Her blood pressure was not elevated. She will follow-up with Dr. Ramesh on Monday otherwise. Lab Data Laboratory Results Coronavirus (PCR) Negative (Negative) 07/22/24 16:38 Influenza A (PCR) Negative (Negative) 07/22/24 16:38 Influenza Type B (PCR) Negative (Negative) 07/22/24 16:38 RSV (PCR) Negative (Negative) 07/22/24 16:38 SARS-CoV-2 (PCR) Not detected (NOT DETECT) 11/22/23 17:20 Coronavirus Type 229E (PCR) Not detected (NOT DETECT) 11/22/23 17:20 Coronavirus (PCR) Negative (Negative) 07/22/24 16:38 No radiology studies performed this visit Discharge Plan Discharge Condition: Stable Prescriptions: No Action vit-ferrous sulfat-FA 27 mg iron- 0.8 mg Tablet 1 tab PO DAILY ibuprofen 800 mg Tablet 800 mg PO TID Qty: 45 0RF albuterol sulfate 90 mcg/actuation HFA aerosol inhaler 1 inh inhalation Q6H PRN (Reason: shortness of breath or wheezing) Qty: 6.7 0RF Referrals: Ronald Ramesh MD [Primary Care Provider] - Coding Level of Care Code ED Tile Shader for [facility] Janel
[2024-07-22 17:52] LABS: Covid PCR NEGATIVE (Negative); Influenza A NEGATIVE (Negative); Influenza B NEGATIVE (Negative); Respiratory Syncytial Virus Ce NEGATIVE (Negative)
== END 2024-07-22 18:15 | disposition home or self-care (01) ==
PROVIDERS: Emergency Medicine; Emergency Provider Physician Assistant; PCP Family Medicine
DX: Z03.89 Encounter for observation for other suspected diseases and conditions ruled out (principal); Z11.52 Encounter for screening for COVID-19; Z87.891 Personal history of nicotine dependence; Z3A.23 23 weeks gestation of pregnancy
CPT/HCPCS: 87637; 99283

== ENCOUNTER 2024-08-11 13:12 | Outpatient (CLI) | payer SELFPAY ==
[2022-04-07 16:27] VITALS: BP 104/49; BMI 22.7
[2024-08-11 13:26] VITALS: BP 108/59; PULSE 93
[2024-08-11 13:41] VITALS: BP 102/61; PULSE 100
[2024-08-11 13:56] VITALS: BP 103/63; PULSE 98
[2024-08-11 14:11] VITALS: BP 104/65; PULSE 96
[2024-08-11 14:17] LABS: Urine Creatinine 204 mg/dL (28-217)
[2024-08-11 14:19] LABS: UPRO/UCREAT Ratio 0.13 mg/mg CR; Urine Protein Random 26 mg/dL
[2024-08-11 14:26] VITALS: BP 108/66; PULSE 95
[2024-08-11 14:38] VITALS: BP 108/66; PULSE 92; RESP 15
== END 2024-08-11 14:38 | disposition home or self-care (01) ==
LOC: OPOB 13:15 → OBGYN 13:17
PROVIDERS: PCP Family Medicine; Visit Provider Family Medicine
DX: O26.899 Other specified pregnancy related conditions, unspecified trimester (principal); Z3A.00 Weeks of gestation of pregnancy not specified; R51.9 Headache, unspecified
CPT/HCPCS: 82570; 84156; 99211

== ENCOUNTER 2024-08-31 17:20 | Outpatient (CLI) | payer SELFPAY ==
[2022-04-07 16:27] VITALS: BP 104/49; BMI 22.7
[2024-08-31] VITALS (7 sets, daily range): BP systolic 100–109; BP diastolic 60–70; PULSE 87–96; RESP 18; TEMP 36.7; O2SAT 98; BMI 19.7
--- NOTE | 2024-08-31 18:35 | PC.NURSE ---
The following Prescription was called to [facility] in [place] at 1835. Promethazine 25 mg PO 1 tab Q6HR PRN for nausea #20. Propranolol 20 mg PO BID #60
[2024-08-31] MEDS: promethazine 25 mg/mL SDV 1 mL IM (19:04)
--- NOTE | 2024-08-31 19:20 | PC.NURSE ---
Patient came in to OB with complaints of a headache. Patient rated headache at a 7 on a pain scale of 0-10. Patient stated she was having no other pain. She stated she was having light and noise sensitivity. Doctor Roylance notified of patients complaint. V/S, heart tones, no contractions reviewed. Doctor ordered medication. See MAR for details. Doctor observed strip and ordered for patient to be discharged after receiving medication. Patient was not content with no further testing being done. Nurse offered to assess patient to the ER after being cleared for related symptoms after being discharged. Patient stated she may stop by but was going to go home and sleep. Patient and her mother was laughing and joking with each other while being discharged and educated by nurse.
[2024-08-31] MEDS: diphenhydrAMINE 50 mg Capsule PO (19:25)
== END 2024-08-31 19:20 | disposition home or self-care (01) ==
LOC: OPOB 17:31 → OBGYN 17:33
PROVIDERS: PCP Family Medicine; Visit Provider Family Medicine
DX: O26.899 Other specified pregnancy related conditions, unspecified trimester (principal); Z3A.00 Weeks of gestation of pregnancy not specified; R51.9 Headache, unspecified; H53.8 Other visual disturbances
CPT/HCPCS: 59025; 96372; 99211; J2550; Q0163

== ENCOUNTER 2024-11-11 07:13 | Inpatient (IN) | payer SELFPAY ==
[2022-04-07 16:27] VITALS: BP 104/49; BMI 22.7
[2024-11-11] VITALS (14 sets, daily range): BP systolic 91–120; BP diastolic 52–74; PULSE 64–105; RESP 16–20; TEMP 36.6–36.8; O2SAT 96; BMI 20.8
[2024-11-11 07:21] LABS: Basophils % 0.2 %; Eosinophils % 0.2 %; Hematocrit 29.3 % (36-47); Lymphocytes # 3.3 10^3/uL (1.5-6.5); Lymphocytes % 20.2 %; Mean Corpuscular HGB Conc 30.4 g/dL (30-55); Mean Corpuscular Hemoglobin 22.9 pg (27-33); Mean Corpuscular Volume 75.5 fl (85-98); Mean Platelet Volume 9.6 fL (7.4-10.4); Monocytes # 0.9 10^3/uL (0.2-0.9); Monocytes % 5.3 %; Neutrophils # 11.92 10^3/uL (1.8-8.0); Neutrophils % 73.7 %; Nucleated Red Blood Cells % 0 %; Platelet Count 236 10^3/cmm (157-399); Red Blood Count 3.88 10^6/uL (3.85-5.65); Red Cell Distribution Width 16.9 % (12.1-15.1)
--- NOTE | 2024-11-11 08:01 | PM.OPHPUD ---
Labor & Delivery H&P Update Date of Procedure: November 11, 2024 Date H&P Performed: 11/04/24 Changes to previous documentation: The patient presents to the hospital in active labor Admission Diagnosis: 18-year-old 4 para 2-0-1-2 at 39 weeks estimated gestational age in active labor Other information: The patient is a 18-year-old female with an unremarkable . She received consistent care. Her labs were also unremarkable. Her blood type was O+. Her antibody screen was negative. Her glucose screen was 140. The patient was hesitant to do a 3-hour glucose screen, and due to her size, and age, her pretest probability was low enough that we made a joint decision not to proceed with the 3-hour glucose screen. She is rubella immune. She was GBS negative. The remainder of her infectious disease profile was within normal limits. Related Problem List Diagnoses (1) 39 weeks gestation of : A&P Assessment and plan (1) 39 weeks gestation of : I anticipate routine labor Status: Acute PDMP PDMP Reviewed: Not Reviewed
--- NOTE | 2024-11-11 08:13 | PM.DELIVERY ---
Delivery Note: Date of delivery: November 11, 2024 Pre-delivery diagnoses: 18-year-old 4 para 2-0-1-2 at 39 weeks estimated gestational age Post-delivery diagnoses: Status post spontaneous vaginal delivery Procedure: Spontaneous vaginal delivery Pre-Delivery Course: The patient arrived to the hospital complaining of contractions. She was checked and noted to be 7 cm dilated. She then quickly progressed to complete without difficulty. An amniotomy was performed just prior to delivery of the baby. Delivery: DELIVERY: The patient progressed to complete without difficulty. She delivered a female with a weight of 7 pounds 5 ounces with Apgars of 8, 9. The baby was delivered from the AMIRA position. The baby's mouth and nose were suctioned at the site of the perineum. The baby was then completely delivered and placed on the mother's abdomen. The cord was then clamped and cut. There was a nuchal cord x 1 which was quickly reduced prior to delivery of the anterior shoulder. There was no meconium. The placenta and 3 vessel cord were delivered intact shortly thereafter. The perineum and vaginal vault were carefully examined. Superficial vaginal wall lacerations were noted which did not require repair. Both the mother and the baby were in stable condition. Post-Delivery Status: Good A&P Assessment and plan (1) Spontaneous vaginal delivery: I anticipate routine care PDMP PDMP Reviewed: Not Reviewed Coding Level of Care Code Acute Code for Chg Fwd Diagnoses Spontaneous vaginal delivery O80
[2024-11-11 21:58] LABS: Hematocrit 26.5 % (36-47); Mean Corpuscular HGB Conc 30.2 g/dL (30-55); Mean Corpuscular Volume 76.1 fl (85-98); Platelet Count 228 10^3/cmm (157-399); Red Blood Count 3.48 10^6/uL (3.85-5.65); Red Cell Distribution Width 16.9 % (12.1-15.1); White Blood Count 17.66 10^3/uL (4.5-13.0)
[2024-11-12 04:15] VITALS: BP 117/84; PULSE 105; RESP 15; TEMP 36.6; O2SAT 96
--- NOTE | 2024-11-12 07:00 | PM.OBGYDC ---
Discharge Providers DIRECTOR PUBLIC SERVICE Date of Admission: 11/11/24 07:13 Date of Discharge: 11/12/24 Attending Provider at Admission: Ronald Ramesh MD Attending Provider at Discharge: Ronald Ramesh MD Primary Care Provider: Ronald Ramesh MD Diagnoses at Discharge Discharge Diagnosis (1) Spontaneous vaginal delivery: Status: Acute Reason for Visit Reason for Visit: contractions Hospital Course Hospital Course The patient arrived in active labor dilated to 7. An amniotomy was performed. She delivered her baby shortly thereafter. She had a spontaneous vaginal delivery. There were no complications. Her course was also unremarkable. She breast-fed well. There were no concerns. Information Peripartum Data: Infant Delivery Method: Vaginal Physical Exam Narrative: The patient is alert. She appears comfortable. Her heart has a regular rate and rhythm with no murmurs appreciated. Lungs are clear to auscultation bilaterally. Her fundus is firm and below the umbilicus. Discharge Data Studies Completed and Pending Laboratory Results WBC 17.66 10^3/uL (4.5-13.0) H 11/11/24 21:49 RBC 3.48 10^6/uL (3.85-5.65) L 11/11/24 21:49 Hgb 8.00 g/dL (12.4-14.8) L 11/11/24 21:49 Hct 26.5 % (36-47) L 11/11/24 21:49 MCV 76.1 fl (85-98) L 11/11/24 21:49 MCH 23.0 pg (27-33) L 11/11/24 21:49 MCHC 30.2 g/dL (30-55) 11/11/24 21:49 RDW 16.9 % (12.1-15.1) H 11/11/24 21:49 Plt Count 228 10^3/cmm (157-399) 11/11/24 21:49 MPV 10.0 fL (7.4-10.4) 11/11/24 21:49 Neut % (Auto) 73.7 % 11/11/24 07:05 Lymph % (Auto) 20.2 % 11/11/24 07:05 [place] % (Auto) 5.3 % 11/11/24 07:05 Eos % (Auto) 0.2 % 11/11/24 07:05 Baso % (Auto) 0.2 % 11/11/24 07:05 Neut # (Auto) 11.92 10^3/uL (1.8-8.0) H 11/11/24 07:05 Lymph # (Auto) 3.3 10^3/uL (1.5-6.5) 11/11/24 07:05 [place] # (Auto) 0.9 10^3/uL (0.2-0.9) 11/11/24 07:05 Eos # (Auto) 0.0 10^3/uL (0.0-0.8) 11/11/24 07:05 Baso # (Auto) 0.0 10^3/uL (0.0-0.1) 11/11/24 07:05 Nucleated RBC % (auto) 0 % 11/11/24 07:05 Nucleated RBCs # 0.0 /100WBC 11/11/24 07:05 Blood Type O Positive 11/11/24 07:05 Rho(D) Type Rh positive 11/11/24 07:05 Antibody Screen Negative 11/11/24 07:05 Vitals Last Vital Signs Temp 97.8 F 11/11/24 21:30 Pulse 105 H 11/11/24 21:30 Resp 18 11/11/24 21:30 BP 91/52 11/11/24 21:30 Pulse Ox 96 11/11/24 21:30 O2 Del Method Room Air 11/11/24 21:30 Results Labs OB ([facility]): Blood Type O Positive 11/11/24 Antibody Screen Negative 11/11/24 Hct 26.5 % (36-47) L 11/11/24 Hgb 8.00 g/dL (12.4-14.8) L 11/11/24 Rho(D) Type Rh positive 11/11/24 Plt Count 228 10^3/cmm (157-399) 11/11/24 Ser , Semi-Qnt 86505.00 mIU/mL 04/18/24 Discharge Plan Discharge Patient Disposition: Home Condition: Stable Prescriptions: New ibuprofen 800 mg Tablet 800 mg PO TID Qty: 45 0RF Continued vit-ferrous sulfat-FA 27 mg iron- 0.8 mg Tablet 1 tab PO DAILY acetaminophen tablet 325 mg PO Q6H PRN (Reason: Headache) Patient Comments: PT REPORTS HAVING AN ALLERGY TO HIGH DOSE TYLENOL PT REPORTS TAKING LOW DOSE TYLENOL WITHOUT ANY ISSUES Discharge Orders: Discharge Order (Routine); Ordered 11/12/24 Ordered By: Ronald Ramesh Referrals: Ronald Ramesh MD [Primary Care Provider] - 6 Weeks Discharge Diet: Usual diet Discharge Activity: Limit activity as instructed Patient Instructions: Opioid Safety Discharge Attestations DIRECTOR PUBLIC SERVICE Time Spent in Discharge Care*: less than 30 min Coding Level of Care Code Acute Code for Chg Fwd Diagnoses Spontaneous vaginal delivery O80
[2024-11-12] MEDS: docusate sodium 100 mg Capsule PO (08:38)
[2024-11-12] MEDS: PRENATAL VIT NO.130/IRON/FOLIC 1 EACH TABLET PO (08:38)
[2024-11-12 12:00] VITALS: BP 98/80; PULSE 92; TEMP 36.7; O2SAT 98
[2024-11-12 12:15] VITALS: BP 98/80; PULSE 92; O2SAT 98
== END 2024-11-12 12:15 | disposition home or self-care (01) | DRG 807 ==
LOC: OPOB 07:14 → OBGYN 07:14
PROVIDERS: Admitting Provider Family Medicine; PCP Family Medicine; Visit Provider Family Medicine
DX: O69.81X0 Labor and delivery complicated by cord around neck, without compression, not applicable or unspecified (principal); Z37.0 Single live birth; Z3A.39 39 weeks gestation of pregnancy
CPT/HCPCS: 59409; 85025; 85027; 86850; 86900; J9999